=== PATIENT | female | born 1945 | race Caucasian/White ===

== ENCOUNTER → 2023-10-08 07:10 | Outpatient (REF) | payer MEDICARE, OTHER, SELFPAY ==
[2023-10-08 08:21] LABS: % Basophils 1.1 % (0-2); % Eosinophils 3.7 % (0-6); % Immature Granulocytes 0.4 % (0-0.5); % Lymphocytes 41.4 % (20.5-51.1); % Monocytes 7.5 % (1.7-9.3); % Neutrophils 45.9 % (42.2-75.2); Absolute Basophils 0.1 10^3/uL (0-0.2); Absolute Eosinophils 0.2 10^3/uL (0-0.7); Absolute Lymphocytes 2.4 10^3/uL (1.2-3.4); Absolute Monocytes 0.4 10^3/uL (0.1-0.6); Absolute Neutrophils 2.6 10^3/uL (1.4-6.5); Hematocrit 38.8 % (37.0-47.0); Hemoglobin 13.3 g/dL (12.0-16.0); Mean Corp Hgb Conc. 34.3 g/dL (33.0-37.0); Mean Corpuscular Hgb 31.1 pg (27.0-31.0); Mean Corpuscular Volume 90.7 fL (81.0-99.0); Mean Platelet Volume 10.4 fL (7.4-10.4); Nucleated Red Blood Cells % 0 %; Platelet Count 203 10^3/uL (130-400); Red Blood Cell Count 4.28 10^6/uL (4.20-5.40); Red Cell Dist. Width 13.1 % (11.5-14.5); White Blood Cell Count 5.7 10^3/uL (4.8-10.8)
[2023-10-08 09:03] LABS: ALT (SGPT) 18 U/L (0-35); AST (SGOT) 21 U/L (14-36); Alkaline Phosphatase 62 U/L (38-126); Blood Urea Nitrogen 15 mg/dl (7-17); Calcium 9.7 mg/dl (8.4-10.2); Carbon Dioxide 25 mmol/L (22-30); Chloride 104 mmol/L (98-107); Glucose 99 mg/dl (70-99); HDL Cholesterol 41 mg/dl; LDL Cholesterol, Calculated 102 mg/dl; Potassium 4.3 mmol/L (3.5-5.1); Sodium 137 mmol/L (135-145); Total Bilirubin 0.9 mg/dl (0.2-1.3); Total Cholesterol 189 mg/dl (50-199); Total Protein 6.4 g/dl (6.3-8.2); Triglyceride 232 mg/dl (10-149); Very Low Density Lipoprotein 46 mg/dl (0-30); eGFR > 60.00
[2023-10-08 09:24] LABS: TSH Reflex To Free T4 0.28 uIU/ml (0.47-4.68)
[2023-10-08 12:16] LABS: Free T4 1.29 ng/dl (0.78-2.19)
== END ==
LOC: REG 07:10
PROVIDERS: ATTENDING PHYSICIAN Internal Medicine
DX: E78.2 Mixed hyperlipidemia (principal); E03.9 Hypothyroidism, unspecified; R53.83 Other fatigue
CPT/HCPCS: 36415; 80053; 80061; 84439; 84443; 85025

== ENCOUNTER → 2023-12-26 07:21 | Outpatient (REF) | payer MEDICARE, OTHER, SELFPAY ==
[2023-12-26 09:55] LABS: TSH Reflex To Free T4 0.38 uIU/ml (0.47-4.68)
[2023-12-26 10:57] LABS: Free T4 1.07 ng/dl (0.78-2.19)
== END ==
LOC: REG 07:21
PROVIDERS: ATTENDING PHYSICIAN Internal Medicine
DX: E05.90 Thyrotoxicosis, unspecified without thyrotoxic crisis or storm (principal)
CPT/HCPCS: 36415; 84439; 84443

== ENCOUNTER → 2024-01-18 10:10 | Outpatient (REF) | payer MEDICARE, OTHER, SELFPAY | LOC: WDC 10:10 | PROVIDERS: ATTENDING PHYSICIAN Internal Medicine | DX: Z12.39 Encounter for other screening for malignant neoplasm of breast (principal); M81.0 Age-related osteoporosis without current pathological fracture; Z12.31 Encounter for screening mammogram for malignant neoplasm of breast | CPT/HCPCS: 77063; 77067; 77080 ==

== ENCOUNTER → 2024-02-12 06:49 | Outpatient (REF) | payer MEDICARE, OTHER, SELFPAY | LOC: RAD 06:49 | PROVIDERS: ATTENDING PHYSICIAN Family Medicine | DX: M25.552 Pain in left hip (principal); M25.512 Pain in left shoulder | CPT/HCPCS: 73030; 73502 ==

== ENCOUNTER → 2024-05-08 08:29 | Outpatient (REF) | payer MEDICARE, OTHER, SELFPAY | LOC: RAD 08:29 | PROVIDERS: ATTENDING PHYSICIAN Internal Medicine; FAMILY PHYSICIAN Internal Medicine | DX: R60.0 Localized edema (principal); K21.9 Gastro-esophageal reflux disease without esophagitis | CPT/HCPCS: 93970 ==

== ENCOUNTER → 2024-06-24 09:21 | Outpatient (REF) | payer MEDICARE, OTHER, SELFPAY | LOC: WDC 09:21 | PROVIDERS: ATTENDING PHYSICIAN Nurse Practitioner Family; FAMILY PHYSICIAN Internal Medicine | DX: N63.21 Unspecified lump in the left breast, upper outer quadrant (principal); N64.4 Mastodynia | CPT/HCPCS: 76642; 77061; 77065 ==

== ENCOUNTER → 2024-06-27 08:11 | Outpatient (REF) | payer MEDICARE, OTHER, SELFPAY | LOC: RAD 08:11 | PROVIDERS: ATTENDING PHYSICIAN Internal Medicine; FAMILY PHYSICIAN Internal Medicine | DX: R60.0 Localized edema (principal); K21.9 Gastro-esophageal reflux disease without esophagitis | CPT/HCPCS: 93970 ==

== ENCOUNTER → 2024-09-17 07:44 | Outpatient (REF) | payer MEDICARE, OTHER, SELFPAY ==
[2024-09-17 11:50] LABS: ALT (SGPT) 20 U/L (0-35); AST (SGOT) 22 U/L (14-36); Albumin 4.4 g/dl (3.5-5.0); Alkaline Phosphatase 68 U/L (38-126); Blood Urea Nitrogen 17 mg/dl (7-17); Calcium 9.8 mg/dl (8.4-10.2); Carbon Dioxide 28 mmol/L (22-30); Chloride 105 mmol/L (98-107); Glucose 105 mg/dl (70-99); Potassium 4.4 mmol/L (3.5-5.1); Sodium 142 mmol/L (135-145); Total Bilirubin 0.8 mg/dl (0.2-1.3); Total Protein 6.6 g/dl (6.3-8.2); eGFR > 60.00
[2024-09-17 11:58] LABS: TSH Reflex To Free T4 4.95 uIU/ml (0.47-4.68)
[2024-09-17 12:28] LABS: Free T4 1.01 ng/dl (0.78-2.19)
== END ==
LOC: REG 07:44
PROVIDERS: ATTENDING PHYSICIAN Internal Medicine
DX: E03.9 Hypothyroidism, unspecified (principal)
CPT/HCPCS: 36415; 80053; 84439; 84443

== ENCOUNTER → 2024-11-13 08:07 | Outpatient (REF) | payer MEDICARE, OTHER, SELFPAY | LOC: RAD 08:07 | PROVIDERS: ATTENDING PHYSICIAN Family Medicine; FAMILY PHYSICIAN Internal Medicine | DX: R05.3 Chronic cough (principal) | CPT/HCPCS: 71046 ==

== ENCOUNTER → 2025-03-04 14:34 | Outpatient (REF) | payer MEDICARE, OTHER, SELFPAY | LOC: WDC 14:34 | PROVIDERS: ATTENDING PHYSICIAN Internal Medicine | DX: Z12.31 Encounter for screening mammogram for malignant neoplasm of breast (principal) | CPT/HCPCS: 77063; 77067 ==